=== PATIENT | female | born 1960 | race Caucasian/White ===

== ENCOUNTER → 2016-04-02 18:30 | Outpatient (CLI) | payer OTHER ==
[2015-07-19 11:04] VITALS: BMI 29.9
[~2016-04-02 18:30] MED LIST: ACETAMINOPHEN500 M1 PO; HYZAAR 50-12.51 TAB PO; IBUPROFEN800 MG PO; PRILOSEC20 MG PO; PROBIOTIC1 EAC1 PO; VITAMIN D50000 UNIT PO; ZOLOFT50 MG
== END | disposition home or self-care (01) ==
LOC: D.LABREF 18:30
DX: R53.83 Other fatigue (principal)

== ENCOUNTER → 2016-05-07 18:50 | Outpatient (CLI) | payer OTHER ==
[2015-07-19 11:04] VITALS: BMI 29.9
== END | disposition home or self-care (01) ==
LOC: D.LABREF 18:50
DX: G62.9 Polyneuropathy, unspecified (principal)

== ENCOUNTER → 2016-06-20 19:31 | Outpatient (CLI) | payer OTHER ==
[2015-07-19 11:04] VITALS: BMI 29.9
== END | disposition home or self-care (01) ==
LOC: D.LABREF 19:31
DX: R53.81 Other malaise (principal); I10 Essential (primary) hypertension

== ENCOUNTER → 2016-06-22 10:39 | Outpatient (CLI) | payer OTHER ==
[2015-07-19 11:04] VITALS: BMI 29.9
== END | disposition home or self-care (01) ==
LOC: D.US 10:30
DX: I10 Essential (primary) hypertension (principal)

== ENCOUNTER → 2016-07-02 13:06 | Outpatient (CLI) | payer OTHER ==
[2015-07-19 11:04] VITALS: BMI 29.9
== END | disposition home or self-care (01) ==
LOC: D.CT 13:00
DX: I10 Essential (primary) hypertension (principal)

== ENCOUNTER → 2016-09-05 19:16 | Outpatient (CLI) | payer OTHER ==
[2015-07-19 11:04] VITALS: BMI 29.9
== END | disposition home or self-care (01) ==
LOC: D.LABREF 19:16
DX: G62.9 Polyneuropathy, unspecified (principal)

== ENCOUNTER → 2016-10-03 10:24 | Outpatient (CLI) | payer OTHER ==
[2015-07-19 11:04] VITALS: BMI 29.9
--- NOTE | 2016-10-03 12:20 | NUR ---
Nutrition education for elevated A1c: S: Pt reports drinking at least 2 regular sodas every day. Pt eats out more than she eats at home. Pt drinks very little water. Pt is just now starting to eat nonstarchy vegetables every day. Pt is active at work but does not exercise. Pt has a sweet tooth and eats sugar every day. O: 56 year old female Ht: 5'7" Wt: 185# IBW: 135# +/-10% BMI: 29.0 A: Pt food recall reveals pt is eating too much at meals. Pt with no idea what a serving size should be. Advised pt to eat no more than 2 servings of CHO foods at meals and only 1 serving of CHO at snacks. Advised pt to eliminate all sugar from her diet. Pt advised to stop drinking soda of any kind and to drink water instead. Reviewed CHO foods and the affect CHO have on glucose. Reviewed portion sizes of common CHO foods. Stressed the importance of eating meals at consistent times every day. Advised pt to begin an exercise routine with walking for cardio and strength training several times a week. Reviewed sample menus. Discussed complications of elevated glucose. Pt with good understanding of information provided; however, pt is not very happy about having to give up sugar and soda. She is concerned she will not be able to stick with it. RDN reviewed complications of elevated glucose again with pt. RDN feels pt is not going to be very compliant with information provided. P: Provided pt with printed diet information and RDN name and phone number. RDN will be avialable if needed. Thank you for the consult.
== END | disposition home or self-care (01) ==
LOC: D.FANS 09-25 13:00
DX: R73.09 Other abnormal glucose (principal)

== ENCOUNTER → 2016-10-15 09:50 | Outpatient (CLI) | payer OTHER ==
[2015-07-19 11:04] VITALS: BMI 29.9
== END | disposition home or self-care (01) ==
LOC: D.RT 09:50
DX: R06.2 Wheezing (principal)

== ENCOUNTER 2016-10-17 06:33 | Day surgery (SDC) | payer OTHER ==
[~2016-10-17] VITALS: Ht 170.2 cm; Wt 84.1 kg
[2016-10-17 07:49] LABS: HEMATOCRIT 38.5 % (36.0-48.0); HEMOGLOBIN 13.1 g/dL (12-16); MCH 29.4 pg (26.0-34.0); MCV 86.5 fL (80.0-100.0); MEAN PLATELET VOLUME 11.1 fL (7.4-10.4); RBC 4.45 10x6/uL (4.00-5.40); RDW 12.8 % (11.5-14.5); WBC 5.6 10x3/uL (4.8-10.8)
[2016-10-17 08:05] LABS: ANION GAP 11.2 mmol/L (8-16); CALCIUM 8.7 mg/dL (8.5-10.1); CARBON DIOXIDE 31.1 mmol/L (21.0-32.0); CREATININE - SERUM 0.9 mg/dL (0.6-1.3); POTASSIUM - SERUM 3.3 mmol/L (3.5-5.1)
[2016-10-17] MEDS ORDERED: HYZAAR 100-25 T1 TAB PO (08:54)
[2016-10-17] MEDS ORDERED: NORVASC5 MG PO (08:55)
[2016-10-17] MEDS ORDERED: OMEPRAZOLE20 M1 PO (08:56)
[2016-10-17 08:57] VITALS: Ht 170.2 cm; Wt 84.1 kg
--- NOTE | 2016-10-17 10:13 | NUR ---
1005 BACK FROM EGD AND BIOPSIES. ALERT AND VERBALLY RESONSIVE. RESP NONLABORED. HOB ELEVATED. TRAY ORDERED. REPORT TO RAFAEL YATES.Adrian
--- NOTE | 2016-10-17 11:26 | NUR ---
1105--IV DC'D, PT UP TO DRESS. JON GARLAND 1120--DISCHARGE INSTRUCTIONS GIVEN, PT VERBALIZES UNDERSTANDING. PT OFF UNIT VIA WC. JON GARLAND
--- NOTE | 2016-10-18 09:08 | OP ---
PATIENT NAME: HOLLY BYNUM MEDICAL RECORD: [id number] :56 LOCATION:D.OPS ADMISSION DATE: SURGEON: TIMOTHY DUMONT MD DATE OF OPERATION: 10/17/2016 PREOPERATIVE DIAGNOSES: History of Tellez's esophagus in need of a surveillance, upper endoscopy with biopsies. POSTOPERATIVE DIAGNOSES: History of Tellez's esophagus in need of a surveillance, upper endoscopy with biopsies, with minimal regression and the Tellez's esophagus. PROCEDURE: Esophagogastroduodenoscopy with antral and distal esophageal biopsies. SURGEON: Timothy Dumont MD. BUNDLE COLLECTOR: None. BLOOD: Minimal. ANESTHESIA: IV sedation. COMPLICATIONS: None. The risks, possible complications, and alternatives to the procedure were explained to the patient. She elects to proceed. The discussion specifically included, but was not limited to, bleeding or requiring an emergency reoperation, infection, and endoscopic perforation. ENDOSCOPIC COURSE: The patient was conveyed to the endoscopy suite electively on 10/17/2016. IV sedation was induced by the anesthesia staff. A bite block was inserted. A gastroscope was inserted into the mouth. It was advanced easily into the hypopharynx. The esophagus was easily intubated as were the stomach and duodenum. Upon withdrawal, retroflexed and angulus views were obtained. Antral biopsies were obtained. Distal esophageal biopsies were obtained. The endoscope was then withdrawn under direct vision. I will see the patient in my office in 2-3 weeks to review the results of the biopsies. I will plan for her next surveillance upper endoscopy with biopsies to take place in 2 years. TRANSINT:[id number] Voice Confirmation ID: [id number] DOCUMENT ID: [id number] TIMOTHY DUMONT MD at 0908 CC: [id number] DICTATION DATE: 10/17/162126 SOFTWARE TRAINER: 10/18/16 0027 [facility] 10/17/16 [place] [address]
== END 2016-10-17 11:20 | disposition home or self-care (01) ==
LOC: D.OPS 06:33
PROVIDERS: Anesthesiology
DX: K22.70 Barrett's esophagus without dysplasia (principal); Z01.812 Encounter for preprocedural laboratory examination